=== PATIENT | female | born 1955 | race Caucasian/White ===

== ENCOUNTER 2023-08-25 06:07 | Inpatient (IN) ==
[2023-08-25] MEDS ORDERED: IOPAMIDOL 100 ML BOTTLE IV ONE (06:08)
[2023-08-25] MEDS ORDERED: 0.9 % SODIUM CHLORIDE 1,000 ML IV ONE (06:20)
[2023-08-25] MEDS ORDERED: ONDANSETRON 4 MG/2 ML VIAL IV PRN (06:20)
[2023-08-25] MEDS ORDERED: methylPREDNISolone SOD SUCC 125 MG/2 ML VIAL IV ONE (06:26)
[2023-08-25] MEDS ORDERED: morphine 4 MG/ML VIAL IV PRN (06:26)
[2023-08-25 06:33] LABS: POC Creatinine 0.4 (0.6-1.2); POC Potassium 3.5 (3.3-5.1)
[2023-08-25 07:33] LABS: Basophils # (Auto) 0.03 K/mcL (0.00-0.30); Basophils % (Auto) 0.3 % (0.0-2.0); Eosinophils # (Auto) 0.08 K/mcL (0.00-0.70); Eosinophils % (Auto) 0.9 % (0.0-7.0); Hematocrit 43.1 % (34.1-44.9); Hemoglobin 14.7 g/dL (11.2-15.7); Lymphocytes # (Auto) 1.04 K/mcL (1.50-4.80); Lymphocytes % (Auto) 11.3 % (15.5-49.0); Mean Cell Volume 94.5 fL (80.0-100.0); Mean Corpuscular HGB Conc 34.1 g/dL (31.0-36.0); Mean Platelet Volume 9.7 fL (8.8-12.5); Monocytes # (Auto) 0.86 K/mcL (0.10-0.90); Monocytes % (Auto) 9.3 % (1.0-12.0); Neutrophils % (Auto) 77.8 % (38.0-78.0); Platelet Count 275 K/mcL (140-440); RBC 4.56 M/mcL (3.59-5.38); Red Cell Distribution Width 13.3 % (11.5-14.5); WBC 9.2 K/mcL (4.5-11.0)
[2023-08-25 07:47] LABS: Alcohol, Blood < 10.0 mg/dL; Alcohol,Blood < 0.010 gm/dL (<0.010)
[2023-08-25 08:21] LABS: ALT/SGPT 6 U/L (<40); AST/SGOT 13 U/L (<32); Albumin 3.6 gm/dL (3.2-5.2); Alkaline Phosphatase 144 U/L (39-117); Bilirubin,Direct < 0.2 mg/dL (0-0.3); Bilirubin,Total 0.5 mg/dL (0.1-1.0); Globulin 3.7 gm/dL (2.2-3.7); proBNP 221.9 pg/mL (<125.0)
[2023-08-25 08:26] LABS: Erythrocyte Sedimentation Rate 66 mm/hr (0-30)
[2023-08-25] MEDS ORDERED: PANTOPRAZOLE 40 MG VIAL IV ONE (08:59)
[2023-08-25] MEDS ORDERED: MAG HYDROX/AL HYDROX/SIMETH 30 ML ORAL.SUSP PO ONE (08:59)
[2023-08-25] MEDS ORDERED: IPRATROPIUM/ALBUTEROL 3 ML AMPUL.NEB NEB ONE ×3 (09:31→10:21)
[2023-08-25 09:43] LABS: Appearance,Urine HAZY (Clear); Bilirubin,Urine Negative (Negative); Color,Urine YELLOW; Culture Indicated,Urine No; Glucose,Urine (UA) Negative (Negative); Ketones,Urine 5 mg/dL (Negative); Leukocyte Esterase,Urine Negative /uL (Negative); Nitrate,Urine Negative (Negative); Protein,Urine Negative (Negative); Urine Blood Negative (Negative); Urine RBC 1 /hpf (0-3); Urine Squamous Epithelial Cell 10 /hpf (0-4); Urine WBC 3 /hpf (0-4); Urobilinogen,Urine Negative
[2023-08-25] MEDS ORDERED: LORazepam 1 MG TABLET PO PRN (12:22)
[2023-08-25] MEDS ORDERED: PSEUDOEPHEDRINE 30 MG TABLET PO PRN (12:26)
[2023-08-25] MEDS ORDERED: FEXOFENADINE 180 MG TABLET PO PRN (12:27)
[2023-08-25] MEDS ORDERED: guaiFENesin/DEXTROMETHORPHAN 5ML UD CUP PO PRN (12:30)
[2023-08-25] MEDS ORDERED: traZODone HCL 50 MG TABLET PO PRN (12:30)
[2023-08-25] MEDS ORDERED: ALBUTEROL SULFATE 2.5 MG/3 ML NEBULIZER NEB PRN (12:30)
[2023-08-25] MEDS ORDERED: oxyCODONE IR 5 MG TABLET PO PRN (12:30)
[2023-08-25] MEDS: predniSONE 20 MG TABLET PO SCH (13:23)
[2023-08-25] MEDS: levETIRAcetam 500 MG TABLET PO SCH ×2 (13:23→20:21)
[2023-08-25 13:39] LABS: POC Calcium, Ionized 1.07 (1.16-1.32); POC Creatinine 0.5 (0.6-1.2); POC Potassium 3.5 (3.3-5.1)
[2023-08-25] MEDS: IPRATROPIUM/ALBUTEROL 3 ML AMPUL.NEB NEB SCH ×3 (14:22→23:20)
[2023-08-25] MEDS: rOPINIRole 0.25 MG TABLET PO SCH (16:20)
[2023-08-25] MEDS: 0.9 % SODIUM CHLORIDE 10 ML SYRINGE IV SCH ×2 (16:28→22:41)
[2023-08-25] MEDS: ONDANSETRON 4 MG/2 ML VIAL IV PRN (16:29)
[2023-08-25] MEDS: LORazepam 0.5 MG TABLET PO PRN (16:29)
[2023-08-25] MEDS: SENNOSIDES 1 TABLET PO SCH (16:29)
[2023-08-25] MEDS: oxyCODONE IR 5 MG TABLET PO PRN (18:20)
[2023-08-25] MEDS: CALCIUM CARBONATE 500 MG TAB.CHEW PO SCH (20:20)
[2023-08-25] MEDS: DOCUSATE SODIUM 100 MG CAPSULE PO SCH (20:24)
[2023-08-25] MEDS ORDERED: cloNIDine HCL 0.1 MG TABLET PO SCH (21:00)
[2023-08-25] MEDS ORDERED: SIMVASTATIN 10 MG TABLET PO SCH (21:00)
[2023-08-25] MEDS ORDERED: rOPINIRole 0.25 MG TABLET PO SCH (21:00)
[2023-08-25] MEDS: morphine 4 MG/ML VIAL IV PRN (22:01)
[2023-08-26] MEDS: oxyCODONE IR 5 MG TABLET PO PRN ×3 (00:25→15:36)
[2023-08-26] MEDS: morphine 4 MG/ML VIAL IV PRN (02:03)
[2023-08-26] MEDS: ONDANSETRON 4 MG/2 ML VIAL IV PRN (02:51)
[2023-08-26] MEDS: IPRATROPIUM/ALBUTEROL 3 ML AMPUL.NEB NEB SCH ×2 (03:15→07:01)
[2023-08-26] MEDS: 0.9 % SODIUM CHLORIDE 10 ML SYRINGE IV SCH ×2 (05:14→15:19)
[2023-08-26 06:30] LABS: Basophils # (Auto) 0.02 K/mcL (0.00-0.30); Basophils % (Auto) 0.1 % (0.0-2.0); Eosinophils # (Auto) 0 K/mcL (0.00-0.70); Eosinophils % (Auto) 0 % (0.0-7.0); Hematocrit 35.2 % (34.1-44.9); Hemoglobin 11.7 g/dL (11.2-15.7); Lymphocytes # (Auto) 0.65 K/mcL (1.50-4.80); Lymphocytes % (Auto) 4.1 % (15.5-49.0); Mean Cell Volume 95.7 fL (80.0-100.0); Mean Corpuscular HGB Conc 33.2 g/dL (31.0-36.0); Mean Platelet Volume 9.8 fL (8.8-12.5); Monocytes # (Auto) 1.26 K/mcL (0.10-0.90); Neutrophils % (Auto) 87.4 % (38.0-78.0); Platelet Count 286 K/mcL (140-440); RBC 3.68 M/mcL (3.59-5.38); Red Cell Distribution Width 13.5 % (11.5-14.5); WBC 15.7 K/mcL (4.5-11.0)
[2023-08-26 06:57] LABS: ALT/SGPT 6 U/L (<40); AST/SGOT 9 U/L (<32); Albumin 3.9 gm/dL (3.2-5.2); Albumin/Globulin Ratio 1.3 (1.0-2.3); Alkaline Phosphatase 114 U/L (39-117); Bilirubin,Direct < 0.2 mg/dL (0-0.3); Bilirubin,Total 0.2 mg/dL (0.1-1.0); Blood Urea Nitrogen 6 mg/dL (8-23); Calcium 9.3 mg/dL (8.6-10.4); Carbon Dioxide 31 mmol/L (22-30); Chloride 93 mmol/L (96-108); Globulin 3.1 gm/dL (2.2-3.7); Glomerular Filtration Rate 99; Glucose 97 mg/dL (70-105); Lactate Dehydrogenase 132 U/L (135-225); Phosphorous 2.8 mg/dL (2.5-4.5); Triglycerides 60 mg/dL (<150); Uric Acid 2.3 mg/dL (2.5-8.0)
[2023-08-26] MEDS ORDERED: LEVOTHYROXINE 50 MCG TABLET PO SCH (07:30)
[2023-08-26] MEDS ORDERED: PANTOPRAZOLE 40 MG TABLET PO SCH (07:30)
[2023-08-26] MEDS: CALCIUM CARBONATE 500 MG TAB.CHEW PO SCH (08:10)
[2023-08-26] MEDS: predniSONE 20 MG TABLET PO SCH (08:10)
[2023-08-26] MEDS: LORazepam 0.5 MG TABLET PO PRN (08:12)
[2023-08-26] MEDS: ENOXAPARIN 40 MG/0.4 ML SYRINGE SQ SCH ×2 (08:13→09:09)
[2023-08-26] MEDS: DOCUSATE SODIUM 100 MG CAPSULE PO SCH (08:13)
[2023-08-26] MEDS: levETIRAcetam 500 MG TABLET PO SCH ×2 (08:13→13:18)
[2023-08-26 08:59] VITALS: O2SAT 95
[2023-08-26] MEDS ORDERED: SENNOSIDES 1 TABLET PO SCH (09:00)
[2023-08-26] MEDS ORDERED: VITAMIN D3 25 MCG TABLET PO SCH (09:00)
[2023-08-26] MEDS ORDERED: ASPIRIN 81 MG TAB.CHEW PO SCH (09:00)
[2023-08-26] MEDS ORDERED: AZITHROMYCIN 250 MG TABLET PO SCH (09:00)
[2023-08-26] MEDS ORDERED: CYANOCOBALAMIN (VITAMIN B-12) 1,000 MCG TABLET PO SCH (09:00)
[2023-08-26] MEDS ORDERED: VITAMIN D3 125 MCG TABLET PO SCH (09:00)
[2023-08-26] MEDS ORDERED: EZETIMIBE 10 MG TABLET PO SCH (09:00)
[2023-08-26] MEDS ORDERED: IPRATROPIUM/ALBUTEROL 3 ML AMPUL.NEB NEB PRN (09:10)
[2023-08-26 09:29] LABS: Band Neutrophils % 3 % (0-10); Lymphocytes % 4 % (15-49); Monocytes % (Manual) 6 % (1-12); Platelet Estimate NORMAL (Normal); RBC Morphology NORMAL (Normal); Segmented Neutrophils % 87 % (38-78)
[2023-08-26] MEDS ORDERED: LIDOCAINE PATCH TOPICAL SCH (10:00)
[2023-08-26] MEDS ORDERED: IOPAMIDOL 100 ML BOTTLE IV ONE (12:20)
[2023-08-26] MEDS: rOPINIRole 0.25 MG TABLET PO SCH (15:36)
[2023-08-26] MEDS: SENNOSIDES 1 TABLET PO SCH (15:37)
[2023-08-26 20:16] VITALS: TEMP 97.9
== END 2023-08-26 16:00 | disposition home or self-care (01) | DRG 190 ==
LOC: ED 06:07 → MEDSUR 12:03
PROVIDERS: ADMIT Internal Medicine; ATTEND Internal Medicine